=== PATIENT | female | born 1990 | race Two or more races ===

== ENCOUNTER 2022-07-24 15:03 | Emergency (ER) | payer SELFPAY ==
[~2022-07-24] VITALS: Ht 165.1 cm; Wt 70.0 kg
[2022-07-24 17:29] LABS: URINE BILIRUBIN - DIPSTICK NEGATIVE (NEGATIVE); URINE BLOOD DIPSTICK SMALL (NEGATIVE); URINE COLOR YELLOW; URINE GLUCOSE - DIPSTICK NEGATIVE (NEGATIVE); URINE KETONE NEGATIVE (NEGATIVE); URINE LEUK ESTERASE NEGATIVE (NEGATIVE); URINE PROTEIN - DIPSTICK NEGATIVE (NEG-TRACE); URINE SPECIFIC GRAVITY 1.025; URINE UROBILINOGEN - DIPSTICK 0.2 E.U./dL (0.2)
[2022-07-24 17:31] LABS: URINE NITRITE - DIPSTICK NEGATIVE (Negative)
[2022-07-24 17:38] LABS: URINE RBC 0-2 RBC/hpf (0-5); URINE SQUAMOUS EPITHELIAL CELL RARE EPI/hpf (0-FEW)
[2022-07-24] MEDS ORDERED: BENZONATATE200 MG PO (18:24)
[2022-07-24 18:32] VITALS: BP 122/75
== END 2022-07-24 18:52 | disposition home or self-care (01) | DRG 204 ==
LOC: ED 15:03
PROVIDERS: Nurse Practitioner
DX: R05.9 Cough, unspecified (principal); N93.8 Other specified abnormal uterine and vaginal bleeding

== ENCOUNTER 2023-04-26 20:41 | Emergency (ER) | payer OTHER ==
[~2023-04-26] VITALS: Ht 165.1 cm; Wt 60.0 kg
[~2023-04-26 20:41] MED LIST: BENZONATATE200 MG PO
[2023-04-26 20:50] VITALS: BP 127/83
[2023-04-26 21:01] VITALS: BP 104/86
[2023-04-26 21:30] VITALS: BP 126/76
[2023-04-26 21:46] VITALS: BP 125/79
[2023-04-26 22:47] LABS: URINE BILIRUBIN - DIPSTICK Negative (NEGATIVE); URINE BLOOD DIPSTICK Negative (NEGATIVE); URINE GLUCOSE - DIPSTICK Negative (NEGATIVE); URINE KETONE Trace mg/dL (NEGATIVE); URINE LEUK ESTERASE Negative (NEGATIVE); URINE NITRITE - DIPSTICK Negative (Negative); URINE PROTEIN - DIPSTICK Trace mg/dL (NEG-TRACE); URINE UROBILINOGEN - DIPSTICK 0.2 E.U./dL (0.2)
[2023-04-26 22:48] LABS: URINE COLOR Yellow
[2023-04-27] MEDS ORDERED: IBUPROFEN600 MG PO (01:45)
[2023-04-27 02:13] VITALS: BP 125/79
== END 2023-04-27 02:13 | disposition home or self-care (01) ==
LOC: ED 20:41
PROVIDERS: Emergency Medicine
DX: T74.11XA Adult physical abuse, confirmed, initial encounter (principal); S80.811A Abrasion, right lower leg, initial encounter; R07.81 Pleurodynia; M54.2 Cervicalgia; I10 Essential (primary) hypertension; Y07.01 Husband, perpetrator of maltreatment and neglect; Y04.2XXA Assault by strike against or bumped into by another person, initial encounter; Y92.009 Unspecified place in unspecified non-institutional (private) residence as the place of occurrence of the external cause